=== PATIENT | male | born 1985 | race Caucasian/White ===

== ENCOUNTER 2025-11-24 21:20 | Emergency (ER) | payer OTHER, SELFPAY ==
[2025-11-24 21:25] VITALS: BP 147/77; PULSE 72; RESP 18; TEMP 36.6; O2SAT 97; BMI 26.5
--- NOTE | 2025-11-24 21:29 | DI.RAD.S_ITS ---
PROCEDURE: XR CHEST 1V INDICATIONS: Chest Pain TECHNIQUE: One view of the chest was acquired. COMPARISON: None. FINDINGS: Surgical changes and devices: None. Lungs and pleura: Lungs are clear. No pleural effusions or pneumothorax. Mediastinum: Mediastinal contours appear normal. Heart size is normal. Bones and chest wall: No suspicious bony lesions. Overlying soft tissues appear unremarkable. IMPRESSION: No acute cardiopulmonary abnormalities or focal consolidation. Dictated by: Jaret Auguste M.D. on 11/24/2025 at 22:05 Approved by: Jaret Auguste M.D. on 11/24/2025 at 22:06
--- NOTE | 2025-11-24 21:31 | EKG_ITS ---
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
--- NOTE | 2025-11-24 21:52 | ED.CHESTPAIN ---
HPI - Chest Pain General Chief Complaint: Chest Pain Stated Complaint: Chest pain into shoulder, flushed and hot Time Seen by Provider: 11/24/25 21:41 Source: patient Mode of arrival: Ambulatory History of Present Illness HPI narrative: 40-year-old male with no known cardiac history, family history of factor 5 Leiden mutation, smoker, no history of diabetes, no history of high blood pressure, no history of high cholesterol, no prior cardiac stress testing. Had left anterior chest discomfort earlier today with some radiation to left arm. Symptoms resolved without specific treatment. No fevers or chills. No injury trauma new activities. Pain was not worse with isolated left upper extremity movements. Related Data Allergies Allergy/AdvReac Type Severity Reaction Status Date / Time gabapentin Allergy Anaphylaxis Verified 11/24/25 21:26 codeine AdvReac Agitated Verified 11/24/25 21:26 Exam Narrative Exam Narrative: GENERAL: Well-developed patient, in mild distress. HEAD: Atraumatic. Normocephalic. EYES: Pupils equal round and reactive. Extraocular motions intact. No scleral icterus. No injection or drainage. ENT: Nose without bleeding, purulent drainage. Throat without erythema, tonsillar hypertrophy or exudate. Airway patent. NECK: Trachea midline. Non tender CARDIOVASCULAR: Regular rate and rhythm without murmurs, gallops, or rubs. RESPIRATORY: Clear to auscultation. Breath sounds equal bilaterally. No wheezes, rales, or rhonchi. GASTROINTESTINAL: Abdomen soft, non-tender, nondistended. EXTREMITIES: No edema or joint tenderness. BACK: Nontender without deformity or crepitance. No flank tenderness. NEURO: AOx3. Motor functions grossly nonfocal. SKIN: No rash or erythema of visible areas Initial Vital Signs Initial Vital Signs: Vital Signs Temperature 98 F 11/24/25 21:25 Pulse Rate 72 11/24/25 21:25 Respiratory Rate 18 11/24/25 21:25 Blood Pressure 147/77 H 11/24/25 21:25 Pulse Oximetry 97 11/24/25 21:25 Oxygen Delivery Method Room Air 11/24/25 21:25 Scores HEART Score Heart Score history: Slightly Suspicious Heart Score EKG: Normal Heart Score Age: < 45 years old Heart Score risk factors: 1-2 risk factors Heart Score troponin: < or = to normal limit Heart Score Total: 1 Course Orders Ordered: ED Orders 11/24/25 21:28 EKG-12 Lead Stat 11/24/25 21:29 XR chest 1V Stat EKG-12 Lead Stat 11/24/25 22:20 Complete Blood Count AUTO DIFF Stat Comprehensive Metabolic Panel Stat D Dimer Stat Lipase Stat Magnesium Stat NT-proBNP (BNP-Adult 18+) Stat PTT Partial Thromboplastin Clive Stat Prothrombin Time INR Stat Troponin & CK Cardiac Panel Stat 11/24/25 23:07 Troponin I Stat Discontinued Medications Aspirin (Aspirin 81 Mg Chew Tab) 324 mg PO NOW ONE Stop: 11/24/25 21:30 Last Admin: 11/24/25 22:06 Dose: 324 mg Documented By: ZULEIKA Vital Signs Vital signs: Vital Signs - 8 hr 11/24/25 21:25 11/24/25 22:10 11/24/25 22:18 Temperature 98 F Pulse Rate 72 74 69 Respiratory Rate 18 17 Blood Pressure 147/77 H Pulse Oximetry 97 97 Oxygen Delivery Method Room Air Room Air 11/24/25 22:18 11/24/25 22:30 11/24/25 22:30 Temperature Pulse Rate 66 Respiratory Rate 14 Blood Pressure 135/84 130/79 Pulse Oximetry 98 Oxygen Delivery Method 11/24/25 23:00 11/24/25 23:00 11/24/25 23:30 Temperature Pulse Rate 70 Respiratory Rate 18 Blood Pressure 123/76 119/67 Pulse Oximetry 97 Oxygen Delivery Method 11/24/25 23:30 11/25/25 00:00 11/25/25 00:00 Temperature Pulse Rate 63 61 Respiratory Rate 13 14 Blood Pressure 120/67 Pulse Oximetry 97 97 Oxygen Delivery Method 11/25/25 00:30 11/25/25 00:30 11/25/25 01:00 Temperature Pulse Rate 67 Respiratory Rate 13 Blood Pressure 113/71 115/67 Pulse Oximetry 98 Oxygen Delivery Method 11/25/25 01:00 11/25/25 01:30 11/25/25 01:30 Temperature Pulse Rate 62 67 Respiratory Rate 12 13 Blood Pressure 124/65 Pulse Oximetry 97 98 Oxygen Delivery Method 11/25/25 02:00 11/25/25 02:00 Temperature Pulse Rate 63 Respiratory Rate 13 Blood Pressure 120/70 Pulse Oximetry 97 Oxygen Delivery Method MDM - Chest Pain Lab Data Attestation: I reviewed the patient's lab results. Lab results narrative: White blood cell count 7600, hemoglobin 13.8, platelets adequate. Glucose 175. Normal renal function, serum CO2, electrolytes. Liver functions normal. Troponin negative. BNP normal. D-dimer negative. 11/24/25 22:20 11/24/25 22:20 Labs: Lab Results 11/24/25 11/25/25 Range/Units 22:20 00:42 WBC 7.6 (4.5-11.0) X10^3/uL RBC 4.85 (4.5-5.9) X10^6/uL Hgb 13.8 (13.5-17.5) g/dL Hct 40.1 L (41-53) % MCV 82.6 (80-100) fL MCH 28.5 (26-34) PG MCHC 34.5 (30-36) % RDW 12.7 (11.6-14.8) % Plt Count 280 (150-400) X10^3/uL Neut % (Auto) 48.0 L (50-75) % Lymph % (Auto) 43.2 H (25-40) % Payne % (Auto) 5.8 (3-14) % Eos % (Auto) 2.0 (2-4) % Baso % (Auto) 1.0 (0-2) % Neut # (Auto) 3700 (8069-6085) /uL Lymph # (Auto) 3300 (8979-6713) /uL Payne # (Auto) 400 (0-900) /uL Eos # (Auto) 200 (0-450) /uL Baso # (Auto) 100 (0-100) /uL PT 11.0 (9.4-12.5) SECONDS INR 1.0 (0.9-1.3) APTT 32 (25.1-36.5) SECONDS D-Dimer < 215 (<500) ng/ml Sodium 139 (137-145) mmol/L Potassium 3.9 (3.4-5.1) mmol/L Chloride 108 H (98-107) mmol/L Carbon Dioxide 22 (22-32) mmol/L BUN 19 (9-20) mg/dL Creatinine 0.78 (0.66-1.25) mg/dL Estimated GFR > 60 (>60) mL/min BUN/Creatinine Ratio 24.4 H (6-22) Glucose 175 H (70-99) mg/dL Calcium 9.1 (8.4-10.2) mg/dL Magnesium 1.9 (1.6-2.3) mg/dL Total Bilirubin 0.3 (0.2-1.3) mg/dL AST 30 (17-59) IU/L ALT 41 (<50) IU/L Alkaline Phosphatase 48 (38-126) U/L Total Creatine Kinase 166 (55-170) U/L Troponin I < 0.012 < 0.012 (0.01-0.034) ng/mL NT-Pro-B Natriuret Pep < 20 (<125) pg/mL Total Protein 7.1 (6.3-8.2) g/dL Albumin 4.5 (3.5-5.0) g/dL Globulin 2.6 (1.7-4.1) g/dL Albumin/Globulin Ratio 1.7 (1.0-2.8) Lipase 125 (23-300) U/L Imaging Data Chest x-ray: Radiologist's Impression: [place] [address] XRay Report Signed Patient: Bryant Driver MR#: [id number] : 1985 Acct:[id number] Age/Sex: 40 / M Date of Service: 11/24/25 Loc: ED Accession Number: [id number] Procedure: XR chest 1V Ordering Provider: Long Haddad MD PROCEDURE: XR CHEST 1V INDICATIONS: Chest Pain TECHNIQUE: One view of the chest was acquired. COMPARISON: None. FINDINGS: Surgical changes and devices: None. Lungs and pleura: Lungs are clear. No pleural effusions or pneumothorax. Mediastinum: Mediastinal contours appear normal. Heart size is normal. Bones and chest wall: No suspicious bony lesions. Overlying soft tissues appear unremarkable. IMPRESSION: No acute cardiopulmonary abnormalities or focal consolidation. Dictated by: Jaret Auguste M.D. on 11/24/2025 at 22:05 Approved by: Jaret Auguste M.D. on 11/24/2025 at 22:06 ECG Data Attestation: I personally reviewed and interpreted this ECG as follows: Interpretation: 2131, normal sinus rhythm with rate of 80, no obvious ST segment elevation or depression changes. ME 166, QRS 88, QTC 417. MDM Narrative Medical decision making narrative: 40-year-old male with history of smoking, family history of factor 5 Leiden mutation, no history of VTE, no history of known CAD, has resolved left anterior chest discomfort. Resolved without specific treatments. Given oral aspirin. Heart score = 1 EKG without obvious ischemic changes, sinus rhythm. Chest x-ray no acute changes. See radiology report. Lab data: White blood cell count 7600, hemoglobin 13.8, platelets adequate. Glucose 175. Normal renal function, serum CO2, electrolytes. Liver functions normal. Troponin negative/unmeasurable. BNP normal. D-dimer negative. Interval repeat troponin pending. Still chest pain free. Interval repeat Troponin negative/unmeasurable as well. 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 Discharged home with family. Consider aspirin daily. Consider Pepcid awaiting further evaluation as an outpatient. Discharge Plan Departure Patient Disposition: Home Clinical Impression: Atypical chest pain Instructions: DI for Atypical Chest Pain Activity Restrictions/Additional Instructions: Resolved left-sided chest pain and arm pain of unclear etiology. History of smoking. No known history of blood clots, but some family history of factor 5 Leiden mutation. EKG and serial blood tests not suggestive of heart attack at this time. D-dimer was not elevated, as might be expected with abnormal clotting, such as blood clotting to legs or lungs. Chest x-ray without pneumonia or acute changes. Low risk for coronary artery disease. Further evaluation as needed as an outpatient for now. Consider taking aspirin daily until there is further evaluation. Consider consultation with local box office manager Dr. Gregory, his office information provided, you might need referral from your primary care provider. Symptoms fairly atypical for acid related disease but it might be reasonable to consider taking omeprazole or Pepcid [id number] antacid while awaiting further evaluation. Referrals: Kristian Vásquez MD [Physician, Cardiology] Dacia Torres PA-C [Primary Care Provider, Medical] Stand Alone Forms: Patient Portal/API
[2025-11-24] MEDS: ASPIRIN 81 MG CHEW TAB 324 MG PO (22:06)
[2025-11-24 22:10] VITALS: PULSE 74
[2025-11-24 22:18] VITALS: BP 135/84; PULSE 69; RESP 17; O2SAT 97
[2025-11-24 22:30] VITALS: BP 130/79; PULSE 66; RESP 14; O2SAT 98
--- NOTE | 2025-11-24 22:33 | PC.NURSE ---
Pt reports sudden onset of mid sternum CP that radiates to L shoulder and L arm while driving around 21:00. Pt denies cardiac history, dizziness, headache or SOB. Pt's states he started smoking again, then quit cold turkey two days ago. Pt endorses abruptly quitting smoking in the past w/o issues. CP has now resolved.
[2025-11-24 22:36] LABS: Add Manual Diff / Slide Review NO; Hematocrit 40.1 % (41-53); Hemoglobin 13.8 g/dL (13.5-17.5); Lymphocytes Absolute Auto 3300 /uL (1100-4500); Mean Corpuscular HGB Conc 34.5 % (30-36); Mean Corpuscular Hemoglobin 28.5 PG (26-34); Mean Corpuscular Volume 82.6 fL (80-100); Platelet Count 280 X10^3/uL (150-400)
[2025-11-24 22:51] LABS: Alanine Aminotransferase 41 IU/L (<50); Albumin 4.5 g/dL (3.5-5.0); Albumin Globulin Ratio 1.7 (1.0-2.8); Alkaline Phosphatase 48 U/L (38-126); Blood Urea Nitrogen 19 mg/dL (9-20); Calcium 9.1 mg/dL (8.4-10.2); Carbon Dioxide 22 mmol/L (22-32); Chloride 108 mmol/L (98-107); Creatine Kinase 166 U/L (55-170); Estimated Glomerular Filt Rate > 60 mL/min (>60); Globulin 2.6 g/dL (1.7-4.1); Glucose 175 mg/dL (70-99); HEMOLYSIS 41 (0-50); Lipase 125 U/L (23-300); Magnesium 1.9 mg/dL (1.6-2.3); Potassium 3.9 mmol/L (3.4-5.1); Sodium 139 mmol/L (137-145); Total Protein 7.1 g/dL (6.3-8.2)
[2025-11-24 22:55] LABS: INR 1.0 (0.9-1.3); Prothrombin Time 11.0 SECONDS (9.4-12.5)
[2025-11-24 22:57] LABS: PTT Partial Thromboplastin Tim 32 SECONDS (25.1-36.5)
[2025-11-24 23:00] VITALS: BP 123/76; PULSE 70; RESP 18; O2SAT 97
[2025-11-24 23:02] LABS: NT-proBNP (BNP-Adult 18+) < 20 pg/mL (<125); Troponin I < 0.012 ng/mL (0.01-0.034)
[2025-11-24 23:30] VITALS: BP 119/67; PULSE 63; RESP 13; O2SAT 97
[2025-11-25] VITALS: BP 120/67; PULSE 61; RESP 14; O2SAT 97
[2025-11-25 00:30] VITALS: BP 113/71; PULSE 67; RESP 13; O2SAT 98
[2025-11-25 01:00] VITALS: BP 115/67; PULSE 62; RESP 12; O2SAT 97
[2025-11-25 01:30] VITALS: BP 124/65; PULSE 67; RESP 13; O2SAT 98
[2025-11-25 01:30] LABS: Troponin I < 0.012 ng/mL (0.01-0.034)
[2025-11-25 02:00] VITALS: BP 120/70; PULSE 63; RESP 13; O2SAT 97
== END 2025-11-25 02:35 | disposition home or self-care (01) ==
PROVIDERS: Emergency Provider Emergency Medicine; PCP Physician Assistant
DX: R07.89 Other chest pain (principal); F17.200 Nicotine dependence, unspecified, uncomplicated
CPT/HCPCS: 36415; 71045; 80053; 82550; 83690; 83735; 83880; 84484; 85025; 85379; 85610; 85730; 93005; 99284